=== PATIENT | female | born 2000 | race Caucasian/White ===

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

== ENCOUNTER 2019-01-17 00:39 | Emergency (ER) | payer OTHER ==
[~2019-01-17] VITALS: Ht 175.3 cm; Wt 79.5 kg
[2019-01-17] MEDS ORDERED: COUMADIN4 MG PO (01:46)
[2019-01-17 03:01] LABS: INR 2.1 (0.8-3.0)
[2019-01-17 04:00] VITALS: BP 108/70; PULSE 80; TEMP 97
== END 2019-01-17 04:18 | disposition home or self-care (01) ==
LOC: COL.ER 00:39
PROVIDERS: Emergency Medicine
DX: F10.129 Alcohol abuse with intoxication, unspecified (principal); R11.2 Nausea with vomiting, unspecified; Z79.01 Long term (current) use of anticoagulants

== ENCOUNTER 2020-04-02 03:55 | Emergency (ER) | payer OTHER ==
[~2020-04-02] VITALS: Ht 172.7 cm; Wt 81.8 kg
[~2020-04-02 03:55] MED LIST changes: +COUMADIN4 MG PO
[2020-04-02 04:06] VITALS: TEMP 98.9
[2020-04-02 04:20] LABS: COLLECTION METHOD CLEAN CATCH
[2020-04-02 04:29] LABS: MUCOUS Present /lpf; PH 6 (5-8); URINE APPEARANCE Turbid; URINE BACTERIA Occasional /hpf; URINE BILIRUBIN Negative (NEGATIVE); URINE BLOOD 3+ (NEGATIVE); URINE COLOR Yellow; URINE GLUCOSE Negative (NEGATIVE); URINE KETONE Negative (NEGATIVE); URINE LEUKOCYTE ESTERASE 3+ (NEGATIVE); URINE NITRATE Positive (NEGATIVE); URINE PROTEIN(semi-quant) 2+ (NEGATIVE); URINE RBC >50 /hpf; URINE UROBILINOGEN Negative (NEGATIVE); URINE WBC >50 /hpf
[2020-04-02] MEDS ORDERED: CEPHALEXIN500 M1 PO ×2 (04:32→04:53)
[2020-04-02 05:13] VITALS: BP 123/84; PULSE 89
== END 2020-04-02 05:13 | disposition home or self-care (01) ==
LOC: COL.ER 03:55
PROVIDERS: Emergency Medicine
DX: R30.0 Dysuria (principal); R39.15 Urgency of urination; M54.5 Low back pain; Z87.442 Personal history of urinary calculi; Z79.01 Long term (current) use of anticoagulants